=== PATIENT | male | born 1965 ===

== ENCOUNTER 2021-06-28 10:49 | Outpatient (CLI) | payer OTHER | END 2021-06-28 10:50 | disposition home or self-care (01) | LOC: BICULT 10:49 | PROVIDERS: ATTEND Internal Medicine Nephrology | DX: I13.10 Hypertensive heart and chronic kidney disease without heart failure, with stage 1 through stage 4 chronic kidney disease, or unspecified chronic kidney disease (principal); E11.22 Type 2 diabetes mellitus with diabetic chronic kidney disease; N17.9 Acute kidney failure, unspecified; N18.9 Chronic kidney disease, unspecified; N20.0 Calculus of kidney; M10.9 Gout, unspecified; E78.5 Hyperlipidemia, unspecified; N40.0 Benign prostatic hyperplasia without lower urinary tract symptoms; D75.1 Secondary polycythemia; N11.9 Chronic tubulo-interstitial nephritis, unspecified; R80.9 Proteinuria, unspecified | CPT/HCPCS: 76770; 93975 ==